=== PATIENT | male | born 1950 | race Caucasian/White ===

== ENCOUNTER → 2024-08-20 | Outpatient (CLI) | payer OTHER ==
[~2024-08-20] MED LIST: AMLO10 PO; HYDACE5; HYDPAM25 PO; IBUP800; PREDNISONE; ROSU10TA PO
[2024-08-20 08:27] LABS: BASOPHILS ABSOLUTE AUTO 0.04 K/mm3 (0.00-0.23); BASOPHILS PERCENT AUTO 0 % (0-2); EOSINOPHILS PERCENT AUTO 1 % (0-6); Hematocrit 35.4 % (37.0-53.0); Hemoglobin 11.9 g/dL (13.5-17.5); IMMATURE GRAN ABSOLUTE AUTO 0.08 K/mm3 (0.00-0.10); IMMATURE GRAN PERCENT AUTO 1 % (0-1); LYMPHOCYTES ABSOLUTE AUTO 1.41 K/mm3 (0.84-5.20); LYMPHOCYTES PERCENT AUTO 9 % (21-46); MONOCYTES ABSOLUTE AUTO 1.74 K/mm3 (0.16-1.47); MONOCYTES PERCENT AUTO 11 % (4-13); Mean Corpuscular HGB Conc 33.6 g/dL (31.5-36.5); Mean Corpuscular Volume 95 fL (80-100); Mean Platelet Volume 9.2 fL (9.1-12.4); NEUTROPHILS PERCENT AUTO 78 % (41-73); Platelet Count 354 K/mm3 (150-400); RDW Standard Deviation 47.6 fL (35.1-46.3); Red Blood Cell Count 3.72 M/mm3 (4.30-5.90); White Blood Cell Count 15.57 K/mm3 (4.00-11.30)
[2024-08-20 08:39] LABS: Albumin, Blood 2.3 g/dL (3.4-5.0); Albumin/Globulin Ratio 0.4 (0.8-1.8); Bilirubin, Total 1.1 mg/dL (0.1-1.0); Bun/Creatinine Ratio 13.8 (12.0-20.0); Calcium, Blood 8.7 mg/dL (8.5-10.1); Creatinine, Blood 1.09 mg/dL (0.60-1.20); Globulin, Blood 5.2 g/dL (2.2-4.0); Potassium, Blood 4.1 mmol/L (3.5-5.5); Total Protein, Blood 7.5 g/dL (6.4-8.2)
[2024-08-20 13:52] LABS: PSA, %Free 27.1 %
== END ==
LOC: LAB 08:23 → LAB SHORT 08:23
PROVIDERS: Physician Assistant
DX: R10.9 Unspecified abdominal pain (principal); N42.9 Disorder of prostate, unspecified
CPT/HCPCS: 80053; 83690; 84153; 84154; 85025

== ENCOUNTER 2024-08-28 08:24 | Emergency (ER) | payer OTHER ==
[~2024-08-28] VITALS: Ht 172.7 cm; Wt 104.3 kg
[2024-08-28] MEDS ORDERED: NS 1,000 ML IV SCH (09:05)
[2024-08-28 09:07] LABS: BASOPHILS ABSOLUTE AUTO 0.05 K/mm3 (0.00-0.23); BASOPHILS PERCENT AUTO 0 % (0-2); EOSINOPHILS ABSOLUTE AUTO 0.08 K/mm3 (0.00-0.68); EOSINOPHILS PERCENT AUTO 0 % (0-6); Hematocrit 32.8 % (37.0-53.0); Hemoglobin 11.4 g/dL (13.5-17.5); IMMATURE GRAN ABSOLUTE AUTO 0.21 K/mm3 (0.00-0.10); IMMATURE GRAN PERCENT AUTO 1 % (0-1); LYMPHOCYTES PERCENT AUTO 7 % (21-46); MONOCYTES ABSOLUTE AUTO 2.53 K/mm3 (0.16-1.47); MONOCYTES PERCENT AUTO 13 % (4-13); Mean Corpuscular HGB 32.6 pg (26.0-34.0); Mean Corpuscular HGB Conc 34.8 g/dL (31.5-36.5); Mean Corpuscular Volume 94 fL (80-100); Mean Platelet Volume 9.2 fL (9.1-12.4); NEUTROPHILS ABSOLUTE AUTO 15.64 K/mm3 (1.96-9.15); NEUTROPHILS PERCENT AUTO 79 % (41-73); Platelet Count 340 K/mm3 (150-400); RDW Coefficient Variation 14.6 % (11.7-14.2); RDW Standard Deviation 49.1 fL (35.1-46.3); White Blood Cell Count 19.91 K/mm3 (4.00-11.30)
[2024-08-28 09:28] LABS: Albumin, Blood 2.2 g/dL (3.4-5.0); Albumin/Globulin Ratio 0.4 (0.8-1.8); Bilirubin, Total 1.6 mg/dL (0.1-1.0); Bun/Creatinine Ratio 16.4 (12.0-20.0); Calcium, Blood 8.5 mg/dL (8.5-10.1); Creatinine, Blood 0.98 mg/dL (0.60-1.20); Globulin, Blood 5.4 g/dL (2.2-4.0); Potassium, Blood 4.2 mmol/L (3.5-5.5); Total Protein, Blood 7.6 g/dL (6.4-8.2)
[2024-08-28 09:35] LABS: Magnesium, Blood 1.9 mg/dL (1.6-2.4); Phosphorus, Blood 4.3 mg/dL (2.5-4.9)
[2024-08-28] MEDS ORDERED: ONDA4ODT MM (11:29)
[2024-08-28] MEDS ORDERED: DOC250 PO (11:29)
[2024-08-28] MEDS ORDERED: Percocet 5-3251 EACH PO (11:29)
[2024-08-28] MEDS ORDERED: ULTRA-LIGHT RO1 EACH MC (11:29)
[2024-08-28 12:00] VITALS: BP 125/70
== END 2024-08-28 12:21 | disposition home or self-care (01) ==
LOC: ER 08:24
PROVIDERS: Emergency Medicine
DX: E86.0 Dehydration (principal); E46 Unspecified protein-calorie malnutrition; I10 Essential (primary) hypertension; E78.5 Hyperlipidemia, unspecified; C15.9 Malignant neoplasm of esophagus, unspecified; C16.9 Malignant neoplasm of stomach, unspecified; Z68.33 Body mass index [BMI] 33.0-33.9, adult; Z88.0 Allergy status to penicillin; Z79.01 Long term (current) use of anticoagulants; Z79.899 Other long term (current) drug therapy
CPT/HCPCS: 80053; 83735; 84100; 85025; 86850; 86900; 86901; 93005; 93010; 96360; 99285-25; J7030

== ENCOUNTER 2024-08-29 06:43 | Day surgery (SDC) | payer OTHER ==
[~2024-08-29] VITALS: Ht 172.7 cm; Wt 102.8 kg
[~2024-08-29 06:43] MED LIST changes: +DOC250 PO; +ONDA4ODT MM; +Percocet 5-3251 EACH PO; +ULTRA-LIGHT RO1 EACH MC
[2024-08-29] MEDS ORDERED: Lactated Ringer's 1,000 ML IV ONE ×2 (07:30→08:03)
[2024-08-29] MEDS ORDERED: propofoL 50 ML IV ONE (07:30)
[2024-08-29 09:35] VITALS: BP 108/68
== END 2024-08-29 09:32 | disposition home or self-care (01) ==
LOC: ORSCSDS 06:43
PROVIDERS: Specialist
PROC: 0DBN8ZX Excision of Sigmoid Colon, Via Natural or Artificial Opening Endoscopic, Diagnostic (ICD-10-PCS; principal; 2024-08-29 08:00)
PROC: 0DB58ZX Excision of Esophagus, Via Natural or Artificial Opening Endoscopic, Diagnostic (ICD-10-PCS; principal; 2024-08-29 08:00)
PROC: 0DBL8ZZ Excision of Transverse Colon, Via Natural or Artificial Opening Endoscopic (ICD-10-PCS; principal; 2024-08-29 08:00)
DX: R93.3 Abnormal findings on diagnostic imaging of other parts of digestive tract (principal); R13.10 Dysphagia, unspecified; R11.0 Nausea; K21.9 Gastro-esophageal reflux disease without esophagitis; R63.4 Abnormal weight loss; C15.9 Malignant neoplasm of esophagus, unspecified; D12.3 Benign neoplasm of transverse colon; D12.5 Benign neoplasm of sigmoid colon; K57.30 Diverticulosis of large intestine without perforation or abscess without bleeding; K44.9 Diaphragmatic hernia without obstruction or gangrene; Z79.899 Other long term (current) drug therapy
CPT/HCPCS: 88305; 88360; 88374; J2704; J7120

== ENCOUNTER 2024-09-04 19:47 | Emergency (ER) | payer OTHER ==
[~2024-09-04] VITALS: Ht 182.9 cm; Wt 90.7 kg
[2024-09-04] MEDS ORDERED: Morphine Sulfate 4 MG/1 ML Injection IV ONE (23:10)
[2024-09-04] MEDS ORDERED: Ondansetron HCl 2 MG / ML 2ML Vial IV ONE (23:10)
[2024-09-04] MEDS ORDERED: NS 1,000 ML IV SCH (23:10)
[2024-09-04 23:33] LABS: BASOPHILS ABSOLUTE AUTO 0.05 K/mm3 (0.00-0.23); BASOPHILS PERCENT AUTO 0 % (0-2); EOSINOPHILS ABSOLUTE AUTO 0.04 K/mm3 (0.00-0.68); EOSINOPHILS PERCENT AUTO 0 % (0-6); Hematocrit 30.2 % (37.0-53.0); Hemoglobin 10.1 g/dL (13.5-17.5); IMMATURE GRAN ABSOLUTE AUTO 0.12 K/mm3 (0.00-0.10); IMMATURE GRAN PERCENT AUTO 1 % (0-1); LYMPHOCYTES ABSOLUTE AUTO 1.52 K/mm3 (0.84-5.20); LYMPHOCYTES PERCENT AUTO 9 % (21-46); MONOCYTES ABSOLUTE AUTO 2.09 K/mm3 (0.16-1.47); MONOCYTES PERCENT AUTO 12 % (4-13); Mean Corpuscular HGB 31.7 pg (26.0-34.0); Mean Corpuscular HGB Conc 33.4 g/dL (31.5-36.5); Mean Corpuscular Volume 95 fL (80-100); NEUTROPHILS ABSOLUTE AUTO 14.01 K/mm3 (1.96-9.15); NEUTROPHILS PERCENT AUTO 79 % (41-73); Platelet Count 333 K/mm3 (150-400); RDW Coefficient Variation 15.9 % (11.7-14.2); RDW Standard Deviation 54.8 fL (35.1-46.3); Red Blood Cell Count 3.19 M/mm3 (4.30-5.90); White Blood Cell Count 17.83 K/mm3 (4.00-11.30)
[2024-09-04 23:53] LABS: Albumin/Globulin Ratio 0.4 (0.8-1.8); Bilirubin, Total 1.6 mg/dL (0.1-1.0); Bun/Creatinine Ratio 27.9 (12.0-20.0); Calcium, Blood 8.4 mg/dL (8.5-10.1); Creatinine, Blood 0.86 mg/dL (0.60-1.20); Globulin, Blood 5.5 g/dL (2.2-4.0); Magnesium, Blood 2.2 mg/dL (1.6-2.4); Phosphorus, Blood 4.6 mg/dL (2.5-4.9); Potassium, Blood 4.3 mmol/L (3.5-5.5); Total Protein, Blood 7.5 g/dL (6.4-8.2)
[2024-09-05] MEDS ORDERED: Morphine Sulfate 4 MG/1 ML Injection IV ONE (03:30)
[2024-09-05] MEDS ORDERED: Ondansetron HCl 2 MG / ML 2ML Vial IV ONE (03:35)
[2024-09-05] MEDS ORDERED: METO10 PO (04:24)
[2024-09-05 05:00] VITALS: BP 141/67
== END 2024-09-05 05:06 | disposition home or self-care (01) ==
LOC: ER 19:47
PROVIDERS: Student in an Organized Health Care Education/Training Program
DX: C15.9 Malignant neoplasm of esophagus, unspecified (principal); C78.7 Secondary malignant neoplasm of liver and intrahepatic bile duct; K59.00 Constipation, unspecified; I10 Essential (primary) hypertension; E78.5 Hyperlipidemia, unspecified; Z88.1 Allergy status to other antibiotic agents; Z88.5 Allergy status to narcotic agent; Z79.01 Long term (current) use of anticoagulants
CPT/HCPCS: 74177; 80053; 83690; 83735; 84100; 85025; 96361; 96374-59; 96375; 96376; 99284-25; J2270; J2405; J7030; Q9967

== ENCOUNTER 2024-09-18 07:57 | Day surgery (SDC) | payer OTHER ==
[2024-09-18] VITALS (10 sets, daily range): BP systolic 98–150; BP diastolic 59–72
[~2024-09-18] VITALS: Ht 172.7 cm; Wt 99.0 kg
[~2024-09-18 07:57] MED LIST changes: +METO10 PO
[2024-09-18] MEDS ORDERED: Lactated Ringer's 1,000 ML IV SCH ×2 (08:00→08:30)
[2024-09-18] MEDS ORDERED: CeFAZolin Sodium 2,000 MG in NS 100 ML IV SCH (08:30)
--- NOTE | 2024-09-18 08:59 | NUR ---
PT TO SDS VIA WC. PT STATES THIS IS USED FOR LONGER DISTANCES. PT ABLE TO STAND ON SCALE FOR ACCURATE HEIGHT/WEIGHT. History, Chart, Medications and Allergies reviewed before start of procedure. Lungs clear T/O to Auscultation. Patient confirms NPO status and agrees with scheduled surgery. Pre-Op teaching done. Pt verbalizes understanding. Patient States Post-Procedure ride home has been arranged. PT BELONGINGS PLACED UNDERNEATH [facility] FOR SAFEKEEPING. PT GLASSES TAKEN TO PACU FOR SAFEKEEPING.
[2024-09-18] MEDS ORDERED: propofoL 60 ML IV ONE (09:00)
[2024-09-18] MEDS ORDERED: Lidocaine HCl 1% 30 ML SDV ONE (09:06)
--- NOTE | 2024-09-18 11:23 | NUR ---
Discharge instructions reviewed with patient. Patient verbalizes understanding. Copy given to patient to take home. Patient up to Ambulate independently. Gait steady. Discharged via wheelchair to private car for ride home. ALL BELONGINGS RETURNED TO PATIENT.
[2024-09-30] MEDS ORDERED: FENTANYL1 EA20 TOP (14:19)
[2024-09-30] MEDS ORDERED: ONDANSETRON ODT16 MG PO (14:19)
== END 2024-09-18 23:00 | disposition home or self-care (01) ==
LOC: ORD 07:57 → ORSCMMR 07:57 → ORD 09:00 → ORSCMMR 23:00
PROVIDERS: Surgery
PROC: 05HM33Z Insertion of Infusion Device into Right Internal Jugular Vein, Percutaneous Approach (ICD-10-PCS; principal; 2024-09-18 09:00)
PROC: B543ZZA Ultrasonography of Right Jugular Veins, Guidance (ICD-10-PCS; principal; 2024-09-18 09:00)
PROC: 0JH63WZ Insertion of Totally Implantable Vascular Access Device into Chest Subcutaneous Tissue and Fascia, Percutaneous Approach (ICD-10-PCS; principal; 2024-09-18 09:00)
DX: C15.5 Malignant neoplasm of lower third of esophagus (principal); I10 Essential (primary) hypertension; E78.5 Hyperlipidemia, unspecified; Z79.899 Other long term (current) drug therapy; Z87.891 Personal history of nicotine dependence; E66.9 Obesity, unspecified; Z68.33 Body mass index [BMI] 33.0-33.9, adult
CPT/HCPCS: 36415; 77001; 80053; 85025; C1788; J0690; J1642; J2704; J7120

== ENCOUNTER 2024-09-30 14:03 | Inpatient (IN) | payer OTHER ==
[~2024-09-30] VITALS: Ht 175.3 cm; Wt 91.9 kg
[~2024-09-30 14:03] MED LIST changes: -ROSU10TA PO; +ROSUVASTATIN CA10 MG PO
[2024-09-30] MEDS ORDERED: FENTANYL1 EA20 TD (14:19)
[2024-09-30] MEDS ORDERED: REGLAN1013 PO (14:19)
[2024-09-30] MEDS ORDERED: Ondansetron Odt8 MG SL (14:19)
[2024-09-30 14:41] LABS: BASOPHILS ABSOLUTE AUTO 0.01 K/mm3 (0.00-0.23); BASOPHILS PERCENT AUTO 0 % (0-2); EOSINOPHILS ABSOLUTE AUTO 0.19 K/mm3 (0.00-0.68); EOSINOPHILS PERCENT AUTO 6 % (0-6); Hematocrit 30.6 % (37.0-53.0); Hemoglobin 9.8 g/dL (13.5-17.5); IMMATURE GRAN ABSOLUTE AUTO 0.01 K/mm3 (0.00-0.10); IMMATURE GRAN PERCENT AUTO 0 % (0-1); LYMPHOCYTES ABSOLUTE AUTO 1.03 K/mm3 (0.84-5.20); LYMPHOCYTES PERCENT AUTO 30 % (21-46); MONOCYTES PERCENT AUTO 3 % (4-13); Mean Corpuscular HGB 32.3 pg (26.0-34.0); Mean Corpuscular Volume 101 fL (80-100); NEUTROPHILS PERCENT AUTO 61 % (41-73); Platelet Count 113 K/mm3 (150-400); RDW Standard Deviation 62.4 fL (35.1-46.3); Red Blood Cell Count 3.03 M/mm3 (4.30-5.90); White Blood Cell Count 3.44 K/mm3 (4.00-11.30)
[2024-09-30 14:57] LABS: Albumin, Blood 2.3 g/dL (3.4-5.0); Albumin/Globulin Ratio 0.5 (0.8-1.8); Bilirubin, Total 0.6 mg/dL (0.1-1.0); Bun/Creatinine Ratio 20.4 (12.0-20.0); Creatinine, Blood 0.79 mg/dL (0.60-1.20); Globulin, Blood 4.2 g/dL (2.2-4.0); Magnesium, Blood 1.7 mg/dL (1.6-2.4); Potassium, Blood 2.7 mmol/L (3.5-5.5); Total Protein, Blood 6.5 g/dL (6.4-8.2)
[2024-09-30] MEDS ORDERED: Potassium Chloride 20 MEQ TabCR PO ONE (15:05)
[2024-09-30] MEDS ORDERED: Potassium Chloride 40 MEQ in NS 250 ML IV ONE (15:05)
[2024-09-30] MEDS ORDERED: Potassium Chloride 20 MEQ/15 ML UDC PO ONE (15:10)
[2024-09-30] MEDS ORDERED: Ondansetron HCl 2 MG / ML 2ML Vial IV PRN (15:40)
[2024-09-30] MEDS ORDERED: Enoxaparin 40 MG/0.4 ML SYR SC SCH (16:00)
[2024-09-30] MEDS ORDERED: NS 1,000 ML IV SCH (16:00)
[2024-09-30] MEDS ORDERED: Albumin (Human) 25gm/100ml 100 ML IV ONE (19:55)
[2024-09-30] MEDS ORDERED: LORazepam 2 MG/ML 1ML Injection IV ONE (21:10)
[2024-09-30 21:38] VITALS: BP 150/105
[2024-10-01] VITALS (8 sets, daily range): BP systolic 142–182; BP diastolic 69–83
[2024-10-01 01:04] LABS: Source, Urine Clean Catch
[2024-10-01 01:08] LABS: Bilirubin, Urine Neg (Neg); Blood, Urine Neg (Neg); Glucose Qualitative, Urine Neg (Neg); Ketones, Urine Neg (Neg); Leukocyte Esterase, Urine Neg (Neg); Nitrite, Urine Neg (Neg); Protein, Urine 3+ (Neg); Specific Gravity, Urine 1.015 (1.003-1.022); Urobilinogen, Urine 1+ (Normal); pH, Urine 6.5 (5.0-8.0)
[2024-10-01 01:24] LABS: Appearance, Urine Clear (Clear); Color, Urine Yellow (P-Yellow)
[2024-10-01 01:25] LABS: Amorphous Light (0-Heavy); Bacteria Rare /hpf; Mucus Light (0-Heavy); Red Blood Cells, Urine Not Seen /hpf (0-2); Squamous Epithelial Cells Few /hpf (Few); White Blood Cells, Urine 0-2 /hpf (0-5)
--- NOTE | 2024-10-01 04:54 | NUR ---
PT A&O X4, VS SLIGHTLY ELEVATED, PT DENIES PAIN, NO NAUSEA, AND NO LONGER DIZZY. PT WITH ADEQUATE UOP, AND 1L OF IVF INFUSED THIS SHIFT. PT ADMITTED FROM ED WITH MULTIPLE SYNCOPAL EPISODES AT HOME. PT STATES THAT HE DOES HAVE DIFFICULTY WITH SWALLOWING FOOD, AND DOES TAKE SOFT FOODS AT HOME, WILL CHANGE DIET TO REFLECT THAT. TELE NSR IN 60'S, AND WAS INDEPENDENT AT FOR URINAL USE BY THIS AM. AWAITING CXR.
[2024-10-01 05:50] LABS: BASOPHILS ABSOLUTE AUTO 0.01 K/mm3 (0.00-0.23); BASOPHILS PERCENT AUTO 0 % (0-2); EOSINOPHILS ABSOLUTE AUTO 0.22 K/mm3 (0.00-0.68); EOSINOPHILS PERCENT AUTO 7 % (0-6); Hematocrit 28.5 % (37.0-53.0); Hemoglobin 9.2 g/dL (13.5-17.5); Mean Corpuscular HGB 32.4 pg (26.0-34.0); Mean Corpuscular HGB Conc 32.3 g/dL (31.5-36.5); Mean Corpuscular Volume 100 fL (80-100); Mean Platelet Volume 10.4 fL (9.1-12.4); Platelet Count 87 K/mm3 (150-400); RDW Coefficient Variation 16.8 % (11.7-14.2); RDW Standard Deviation 61.8 fL (35.1-46.3); Red Blood Cell Count 2.84 M/mm3 (4.30-5.90); White Blood Cell Count 3.08 K/mm3 (4.00-11.30)
[2024-10-01 05:54] LABS: IMMATURE GRAN ABSOLUTE AUTO 0.01 K/mm3 (0.00-0.10); IMMATURE GRAN PERCENT AUTO 0 % (0-1); LYMPHOCYTES ABSOLUTE AUTO 1.19 K/mm3 (0.84-5.20); LYMPHOCYTES PERCENT AUTO 39 % (21-46); MONOCYTES ABSOLUTE AUTO 0.12 K/mm3 (0.16-1.47); MONOCYTES PERCENT AUTO 4 % (4-13); NEUTROPHILS ABSOLUTE AUTO 1.53 K/mm3 (1.96-9.15); NEUTROPHILS PERCENT AUTO 50 % (41-73)
[2024-10-01 06:19] LABS: Albumin, Blood 2.5 g/dL (3.4-5.0); Albumin/Globulin Ratio 0.6 (0.8-1.8); Bilirubin, Total 0.6 mg/dL (0.1-1.0); Bun/Creatinine Ratio 18.6 (12.0-20.0); Calcium, Blood 7.7 mg/dL (8.5-10.1); Creatinine, Blood 0.7 mg/dL (0.60-1.20); Total Protein, Blood 6.5 g/dL (6.4-8.2)
[2024-10-01] MEDS ORDERED: NS 1,000 ML IV SCH (13:30)
[2024-10-01] MEDS ORDERED: Potassium Chl 20MEQ/Water100ML 100 ML IV STA (13:35)
[2024-10-01] MEDS ORDERED: HydrALAZINE HCl 20 MG / ML 1ML Vial IV PRN (17:35)
--- NOTE | 2024-10-01 18:42 | NUR ---
PT A&OX4, VSS WITH HTN. PT FAMILY STATES PT NORMALLY TAKES AMLODIPINE FOR HTN, BUT HAS NOT TAKEN IT FOR THE PAST WEEK D/T HYPOTENSION R/T DEHYDRATION FROM POOR ORAL INTAKE. SB 50S TO SR IN 70S ON TELE. C/O NAUSEA THIS MORNING ZOFRAN GIVEN AND EFFECTIVE. POOR ORAL INTAKE, PT ON CONTINUOUS NS AT 75ML/HR, 20 mEq OF IV POTASSIUM GIVEN FOR K+ OF 3.0 WITH AM LABS. GI CONSULT TODAY, PEG TO BE PLACED TOMORROW AFTERNOON FOR NUTRITION. PT HAS PRN HYDRALOZINE FOR SBP>180. 1 PA TO BATHROOM FOR 2 SM LOOSE BM THIS SHIFT, INDEPENDENT WITH URINAL AT BEDSIDE. PT PLEASANT AND COOPERATIVE WITH CARE. DAUGHTER STATED THAT HE LIKES VANILLA ENSURE. DIET TO CHANGE TO WATER/ICECHIPS AT 2100 TONIGHT AND NPO AT NOON TOMORROW FOR PEG PLACEMENT.
[2024-10-02] VITALS (9 sets, daily range): BP systolic 156–190; BP diastolic 67–82
--- NOTE | 2024-10-02 04:34 | NUR ---
NPO @ NOOON FOR FEEDING TUBE PLACEMENT. NO ACUTE NEEDS OVERNIGHT. PALLATIVE CARE CONSULT IN CHART.
[2024-10-02 05:32] LABS: Hematocrit 28.8 % (37.0-53.0); Hemoglobin 9.5 g/dL (13.5-17.5); Mean Corpuscular HGB 32.5 pg (26.0-34.0); Mean Corpuscular Volume 99 fL (80-100); Platelet Count 76 K/mm3 (150-400); RDW Coefficient Variation 16.6 % (11.7-14.2); RDW Standard Deviation 59.7 fL (35.1-46.3); Red Blood Cell Count 2.92 M/mm3 (4.30-5.90); White Blood Cell Count 4.48 K/mm3 (4.00-11.30)
[2024-10-02 05:52] LABS: Albumin, Blood 2.5 g/dL (3.4-5.0); Anion Gap 8 mmol/L (3-11); Blood Urea Nitrogen 7 mg/dL (8-24); Bun/Creatinine Ratio 13.5 (12.0-20.0); CO2, Blood 30 mmol/L (21-32); Calcium, Blood 7.9 mg/dL (8.5-10.1); Chloride, Blood 102 mmol/L (98-108); Creatinine, Blood 0.52 mg/dL (0.60-1.20); Glomerular Filtration Rate 104 (60-); Glucose, Blood 108 mg/dL (70-99); Magnesium, Blood 1.2 mg/dL (1.6-2.4); Phosphorus, Blood 1.9 mg/dL (2.5-4.9); Potassium, Blood 2.8 mmol/L (3.5-5.5); Sodium, Blood 137 mmol/L (136-145)
[2024-10-02] MEDS ORDERED: FentaNYL 12 MCG/HR Patch TOP SCH (09:00)
[2024-10-02] MEDS ORDERED: Potassium Phosphate Dibasic 30 MM in Dextrose 5% 500 ML IV STA (09:07)
[2024-10-02] MEDS ORDERED: Ketorolac Tromethamine 15mg Vial IV PRN (11:25)
[2024-10-02] MEDS ORDERED: Magnesium Sulf 2 GM/Water 50ML 50 ML IV ONE (11:25)
--- NOTE | 2024-10-02 12:34 | NUR ---
NOTE: SPOKE WITH PHARMACIST, RADHA ORTIZ, AND SHE SAID OKAY TO RUN POTASSIUM AND MG CONCURRENTLY.
[2024-10-02] MEDS ORDERED: NS 250 ML IV PRN (13:55)
[2024-10-02] MEDS ORDERED: Lactated Ringer's 1,000 ML IV SCH (14:10)
[2024-10-02] MEDS ORDERED: Potassium Chloride 40 MEQ in NS 250 ML IV ONE (14:30)
--- NOTE | 2024-10-02 14:35 | NUR ---
FLUSHED R HAND IV SITE WITH 10NS TO START PLT INFUSION PER ORDERS.
[2024-10-02] MEDS ORDERED: propofoL 60 ML IV ONE (14:56)
[2024-10-02] MEDS ORDERED: propofoL 20 ML IV ONE (15:09)
[2024-10-02] MEDS ORDERED: CeFAZolin Sodium 2,000 MG in NS 100 ML IV SCH (15:10)
--- NOTE | 2024-10-02 15:21 | NUR ---
10/02/24 [address] HODGES, SEE ANESTHESIA RECORDS.
--- NOTE | 2024-10-02 16:43 | NUR ---
NOTE: PT RETURNED FROM PEG TUBE PLACEMENT AT 1620, FAMILY AT THE BS. PT APPEARS TO HAVE TOLERATED IT WELL. NO PAIN AT THIS TIME. DR. RODRIGUEZ AT THE BS AND SPOKE WITH THE FAMILY. FEEDINGS SET TO BEGIN ON 10/03. PT AWARE.
--- NOTE | 2024-10-02 18:10 | NUR ---
SHIFT SUMMARY PT AOX4, 1 ASSIST WITH FWW TO THE BR. HE CALLS AND MAKES HIS NEEDS KNOWN. PEG PLACED TODAY, HE REMAINS NPO. FAMILY UPDATED AND AT THE BS THROUGHOUT THE SHIFT. NO C/O PAIN SINCE THE SURGERY. NO EVENTS PER TELE. REPOSITIONS SELF IN BED. CALL LIGHT WITHIN REACH, BED LOCKED AND IN THE LOWEST POSITION. WILL REPORT TO ONCOMING NURSE.
[2024-10-02] MEDS ORDERED: HydrALAZINE HCl 20 MG / ML 1ML Vial IV ONE (18:20)
--- NOTE | 2024-10-02 18:21 | NUR ---
NOTE: PT'S BLOOD PRESSURE NOTED IN THE CHART. DR. RYAN NOTIFIED AND MEDICATION ORDERED PER THE EMAR.
[2024-10-03 02:42] VITALS: BP 173/79
[2024-10-03 05:50] LABS: Albumin, Blood 2.3 g/dL (3.4-5.0); Anion Gap 11 mmol/L (3-11); Blood Urea Nitrogen 5 mg/dL (8-24); Bun/Creatinine Ratio 10.4 (12.0-20.0); CO2, Blood 24 mmol/L (21-32); Chloride, Blood 104 mmol/L (98-108); Creatinine, Blood 0.48 mg/dL (0.60-1.20); Glomerular Filtration Rate 107 (60-); Glucose, Blood 82 mg/dL (70-99); Magnesium, Blood 1.2 mg/dL (1.6-2.4); Phosphorus, Blood 2.1 mg/dL (2.5-4.9); Potassium, Blood 2.9 mmol/L (3.5-5.5); Sodium, Blood 136 mmol/L (136-145)
[2024-10-03 07:40] VITALS: BP 179/76
[2024-10-03] MEDS ORDERED: Magnesium Sulf 2 GM/Water 50ML 50 ML IV STA (09:57)
[2024-10-03] MEDS ORDERED: Potassium Phosphate Dibasic 30 MM in Dextrose 5% 500 ML IV STA ×2 (09:58→09:59)
[2024-10-03] MEDS ORDERED: Potassium Chloride 40 MEQ in NS 250 ML IV ONE ×2 (10:00→15:00)
[2024-10-03] MEDS ORDERED: Docusate Sodium Liquid 100 MG UDC PT PRN (14:35)
[2024-10-03] MEDS ORDERED: Magnesium Hydroxide Conc 10 ML UDC PT PRN (14:35)
[2024-10-03] MEDS ORDERED: Bisacodyl 10 MG Supp PR PRN (14:35)
[2024-10-03] MEDS ORDERED: Thiamine HCl 100 MG Tab PT SCH (14:45)
[2024-10-03] MEDS ORDERED: Potassium Chloride 20 MEQ/15 ML UDC PT STA (16:15)
[2024-10-03] MEDS ORDERED: Ondansetron HCl 2 MG / ML 2ML Vial IV PRN (16:25)
[2024-10-03] MEDS ORDERED: Metoclopramide HCl 5MG / ML 2ML Vial IV PRN (16:30)
[2024-10-03] MEDS ORDERED: FentaNYL Citrate 50 MCG/ML 2 ML Injection IV PRN (16:30)
[2024-10-03 16:50] VITALS: BP 182/78
[2024-10-03] MEDS ORDERED: AmLODIPine Besylate 5 MG Tab PT SCH (17:00)
--- NOTE | 2024-10-03 17:12 | NUR ---
SHIFT SUMMARY PT AOX4, 1 ASSIST FWW TO THE BR OR USING THE URINAL. TUBE FEEDINGS STARTED THIS EVENING AND PT TOLERATING WELL. MEDICATED FOR PAIN PER THE EMAR. NO EVENTS PER TELE. MEDICATED FOR PAIN PER THE EMAR. FAMILY EDUCATED ON PEG TUBE USE. REPOSITIONS SELF IN BED. COOPERATIVE WITH CARE. CALL LIGHT WITHIN REACH, BED LOCKED AND IN THE LOWEST POSITION. WILL REPORT TO ONCOMING NURSE.
[2024-10-03] MEDS ORDERED: Ketorolac Tromethamine 15mg Vial IV SCH (18:00)
[2024-10-03 18:23] VITALS: BP 176/75
[2024-10-03] MEDS ORDERED: HydrALAZINE HCl 20 MG / ML 1ML Vial IV ONE (18:30)
[2024-10-03 19:50] VITALS: BP 142/68
[2024-10-04 00:18] VITALS: BP 132/75
--- NOTE | 2024-10-04 04:48 | NUR ---
PT A&O X4. VS WITH HYPERTENTION AND X1 DOSE OF HYDRALAZINE GIVEN IVP WITH GOOD RESULTS. DENIES PAIN. UOP WNL, USING URINAL AT BEDSIDE. PT UP INDEPENDENTLY. TF RUNNING AT 20ML/ HR, AND H2O RUNNING AT 200ML EVERY 2HRS. PT TELE NSR WITH BBB. USES CALL SYSTEM APPROPRIATELY, AWAITING TEACHING FOR HOME TUBE FEEDS, AND FOR LABS TO LEVEL OUT.
[2024-10-04 06:18] LABS: Bun/Creatinine Ratio 10.1 (12.0-20.0); Calcium, Blood 7.8 mg/dL (8.5-10.1); Creatinine, Blood 0.5 mg/dL (0.60-1.20); Magnesium, Blood 1.4 mg/dL (1.6-2.4); Phosphorus, Blood 2.1 mg/dL (2.5-4.9); Potassium, Blood 3.2 mmol/L (3.5-5.5)
[2024-10-04 08:01] VITALS: BP 146/69
[2024-10-04] MEDS ORDERED: Multivitamins-Minerals Liquid 15 ML Oral Syringe PT SCH (09:00)
[2024-10-04] MEDS ORDERED: Rosuvastatin Calcium 10 MG Tab PT SCH (09:00)
[2024-10-04] MEDS ORDERED: Potassium Chloride 20 MEQ/15 ML UDC PT STA (09:12)
[2024-10-04] MEDS ORDERED: Potassium Phosphate Dibasic 30 MM in Dextrose 5% 500 ML IV STA (09:19)
[2024-10-04] MEDS ORDERED: Magnesium Sulf 2 GM/Water 50ML 50 ML IV STA (09:19)
[2024-10-04 12:00] LABS: Hemoglobin 9.6 g/dL (13.5-17.5); Mean Corpuscular HGB 32.4 pg (26.0-34.0); Mean Corpuscular HGB Conc 33.1 g/dL (31.5-36.5); Mean Corpuscular Volume 98 fL (80-100); Mean Platelet Volume 10.4 fL (9.1-12.4); Platelet Count 80 K/mm3 (150-400); RDW Coefficient Variation 16.8 % (11.7-14.2); RDW Standard Deviation 60.9 fL (35.1-46.3); Red Blood Cell Count 2.96 M/mm3 (4.30-5.90); White Blood Cell Count 5.33 K/mm3 (4.00-11.30)
[2024-10-04 13:02] LABS: BASOPHILS PERCENT MAN 0 % (0-2); EOSINOPHILS ABSOLUTE MAN 0.15 K/mm3 (0.00-0.68); EOSINOPHILS PERCENT MAN 3 % (0-6); LYMPHOCYTES ABSOLUTE MAN 1.49 K/mm3 (0.84-5.20); LYMPHOCYTES PERCENT MAN 28 % (21-46); MONOCYTES PERCENT MAN 2 % (4-13); NEUTROPHILS ABSOLUTE MAN 3.57 K/mm3 (1.96-9.15); SEG NEUTROPHILS PERCENT MAN 67 % (41-73); TOTAL CELLS COUNTED 100
--- NOTE | 2024-10-04 14:38 | NUR ---
Javascript Application Developer had questions regarding placement of PEG tube, as pt's cancer treatment "only palliative." Spoke with patient as well as his son Prince, and they are indeed aware of this. Relayed to roofer apprentice. Pt's discharge planning is underway, no questions or concerns from pt or family at this time.
[2024-10-04 15:43] VITALS: BP 161/73
--- NOTE | 2024-10-04 18:03 | NUR ---
APPROX 1130 PT DESCRIBED FEELING FULL AND SMALL AMOUNT OF DISCOMFORT IN ABD. FEEDS PAUSED FOR 2 HOURS. PT REPORTED COMPLETE RELIEF OF THE DISCOMFORT RELATED TO FEELING FULL AND ONLY MINIMAL PAIN AT PEG TUBE SITE. AREA CLEANSED AND REDRESSED. PT TUBE FEED RESTARTED AT NEW ORDERED RATE/FLUSH. PT HAS TOLORATED WELL WITH NO COMPLAINTS. FOURTH HAND NOTIFIED THIS RN THAT DIL DOES NOT FEEL LIKE SHE UNDERSTANDS BOLUS FEED PLAN. FOURTH HAND REQUESTED THAT BEDSIDE NURSE PLEASE CALL DIL TO COME IN BEFORE BEGINNING BOLUS FEED TRIAL SO THAT DIL CAN LEARN AT BEDSIDE. PT NEEDS POWERGLIDE DUE TO CONTINUED NEED FOR SUPPLEMENT ELECTROLITES. GLASS TUBE BENDER AWARE
[2024-10-04] MEDS ORDERED: Potassium Chloride 20 MEQ/15 ML UDC PO ONE (19:00)
--- NOTE | 2024-10-04 19:35 | NUR ---
PT HAS NO IV ACCESS AT THIS TIME, PT WAS INFORMED THAT SOMEONE WOULD BE COMING TO PLACE A NEW LINE. PT STATES HE IS IN NO PAIN AT THIS TIME. CALL LT IN REACH.
[2024-10-04 19:39] VITALS: BP 154/89
--- NOTE | 2024-10-04 20:10 | NUR ---
PT REPORTS HE IS NOT IN PAIN AND DID NOT NEED ANYTHING AT THIS TIME. EXPLAINED TO PT THAT SOMEONE WOULD BE COMING IN TO SEE ABOUT PUTTING A NEW IV. PT AGREES WITH PLAN AND DENIES PAIN AT THIS TIME. CALL LT IN REACH.
--- NOTE | 2024-10-04 22:13 | NUR ---
NEW IV PLACED USING U/S BY NURSING CT MRI TECHNOLOGIST, PT TOLERATED WELL. TELE BATTERIES REPLACED AT THIS TIME. PT CONTINUES TO DENY PAIN AND ANY NEED OF PAIN MEDICATION. NEXT PAIN MED DUE AT MN. NO OTHER NEEDS. CALL LT IN REACH.
--- NOTE | 2024-10-05 00:01 | NUR ---
PT STATES NO PAIN, MEDICATED SCHEDULED TORADOL 15 MG IV. PT UP TO THE BR, AMBULATED WELL. NO OTHER NEEDS. CALL LT IN REACH.
[2024-10-05 00:07] VITALS: BP 144/68
--- NOTE | 2024-10-05 01:50 | NUR ---
PT RESTING QUIETLY. TOLERATING TUBE FEEDING AT 35 MLS/HR GOAL RATE. CALL LT N REACH.
--- NOTE | 2024-10-05 04:01 | NUR ---
PT RESTING QUIETLY. CALL LT IN REACH.
--- NOTE | 2024-10-05 04:03 | NUR ---
SHIFT SUMMARY: PT HAS RESTED WELL T/O SHIFT. HAS DENIED PAIN T/O SHIFT. ON RA. SINUS AT 70 ON TELE. SBA TO BATHROOM D/T PT IN ON CONTINUOUS TUBE FEEDS; AT GOAL RATE OF 35 MLS/HR AND TOLERATING. PT TOLERATES SOME ORAL INTAKE AT PT'S DISCRETION. A/O X 4, PLEASANT AND COOPERATIVE WITH CARE. NO ACUTE CHANGES. WILL CONTINUE TO PROVIDE CARE UNTIL SHIFT REPORT TO ONCOMING NURSE. CALL LT IN REACH.
[2024-10-05 04:29] VITALS: BP 136/75
[2024-10-05 06:10] LABS: Albumin, Blood 2.3 g/dL (3.4-5.0); Anion Gap 9 mmol/L (3-11); Blood Urea Nitrogen 6 mg/dL (8-24); CO2, Blood 25 mmol/L (21-32); Calcium, Blood 7.6 mg/dL (8.5-10.1); Chloride, Blood 104 mmol/L (98-108); Glomerular Filtration Rate 106 (60-); Glucose, Blood 133 mg/dL (70-99); Magnesium, Blood 1.6 mg/dL (1.6-2.4); Phosphorus, Blood 2.3 mg/dL (2.5-4.9); Potassium, Blood 3.5 mmol/L (3.5-5.5); Sodium, Blood 134 mmol/L (136-145)
--- NOTE | 2024-10-05 06:16 | NUR ---
MEDICATED PT WITH SCHEDULED TORADOL. PT SITTING ON SIDE OF BED DOING MOUTHCARE. NO OTHER NEEDS. CALL LT IN REACH.
[2024-10-05 07:02] VITALS: BP 135/67
[2024-10-05] MEDS ORDERED: Potassium Chloride 20 MEQ/15 ML UDC PO SCH (09:00)
[2024-10-05] MEDS ORDERED: Potassium Phosphate Dibasic 20 MM in Dextrose 5% 500 ML IV STA (09:02)
[2024-10-05] MEDS ORDERED: Mag Sulfate 1 GM/D5% 100ML 100 ML IV STA (09:02)
--- NOTE | 2024-10-05 12:40 | NUR ---
CONTINUOUS TUBE FEED STOPPED AT 1040 FOR ONE HOUR; AFTER ONE HOUR PATIENT ASSESSED; FELT FINE; DENIES ABD BLOATING, PAIN, OR FULLNESS. 120 ML OF BOLUS FEED OF JEVITY 1.5 INSTILLED AND 30 ML OF FLUSH BEFORE AND AFTER. PATIENT TOLERATED WELL. THIS WAS REPORTED TO VALERY TAMAYO DIETITIAN.
[2024-10-05 16:14] VITALS: BP 164/78
--- NOTE | 2024-10-05 18:53 | NUR ---
SHIFT SUMMARY: PATIENT TRANSISTIONED FROM CONTINUOUS TUBE FEED TO BOLUS FEEDS(SEE NEW TUBE FEED ORDER); X2 SO FAR AN TOLERATING WELL. PATIENT PO INTAKE IS IMPROVED WELL AND TOLERATING. PATIENT IS VOIDING AND HAVING BOWEL MOVEMENTS; DENIES PAIN. PATIENT IN BED, CALL LIGHT WITHIN REACH, NO SIGNS OR SYMPTOMS OF DISTRESS, PLAN OF CARE ONGOING.
[2024-10-05 20:12] VITALS: BP 151/77
[2024-10-06 00:13] VITALS: BP 142/72
--- NOTE | 2024-10-06 03:15 | NUR ---
SHIFT SUMMARY NO ACUTE EVENTS DURING THIS SHIFT. PT IS A/O X4, PLEASANT AND COOPERATIVE WITH CARE. CONTINUING PT EDUCATION R/T TUBE FEEDINGS. HS FEEDING 335MLS WITH H20 FLUSHES. GOAL IS 335MLS. PT TOLERATED WELL. HOB>40 DEGREES. PT DENIES PAIN AND DISCOMFORT. MODERATE ABDOMINAL DISTENTION, BOWEL SOUNDS ACTIVE PER AUSCULTATION. PT REPORTS HAD AN ICE CREAM AT HS, FELT NAUSEOUS AFTER. TELE: SR @90 WITH BBB. PT DENIES CP/PRESSURE. BED AT THE LOWEST POSITION, CALL LIGHT W/I REACH. PT IS ABLE TO MAKE HIS NEEDS KNOWN.
[2024-10-06 05:10] VITALS: BP 146/72
[2024-10-06 05:54] LABS: Bun/Creatinine Ratio 13.4 (12.0-20.0); Calcium, Blood 8.2 mg/dL (8.5-10.1); Creatinine, Blood 0.52 mg/dL (0.60-1.20); Magnesium, Blood 1.6 mg/dL (1.6-2.4); Phosphorus, Blood 3.1 mg/dL (2.5-4.9); Potassium, Blood 3.7 mmol/L (3.5-5.5)
[2024-10-06 07:13] VITALS: BP 149/69
[2024-10-06] MEDS ORDERED: Mag Sulfate 1 GM/D5% 100ML 100 ML IV STA (07:29)
[2024-10-06] MEDS ORDERED: Protein Supplement 30 ML UD PT SCH (09:00)
--- NOTE | 2024-10-06 14:09 | NUR ---
PATIENT IS REPORTING FULLNESS AT THIS TIME AND WOULD LIKE HOLD OFF ON ADDITIONAL FEED AT THIS TIME.
[2024-10-06 15:07] VITALS: BP 135/65
[2024-10-06] MEDS ORDERED: MULTIPLE VITAM1 EACH PO (15:58)
[2024-10-06] MEDS ORDERED: POTA20LUD PO (15:59)
[2024-10-06] MEDS ORDERED: Promod946 ML PO (16:01)
[2024-10-06] MEDS ORDERED: B-1100 M1 PO (16:02)
--- NOTE | 2024-10-06 16:57 | NUR ---
DISCHARGE NOTE: PATIENT'S IV AND TELE REMOVED. PATIENT AND FAMILY EDUATED ON PEG TUBE AND TUBE FEEDS. PATIENT GOT DRESSED AND COLLECTED BELONGINGS. PATIENT PROVIDED WITH SUPPLEMENTAL FEED TO LAST UNTIL 10/09/24. PATIENT AND FAMILY ACKNOWLEGDED UNDERSTANDING ON EDUCATION AND DISCHARGE. PATIENT TRANSPORTED OFF UNIT BY SON IN PERSONAL WHEELCHAIR. NO SIGNS OR SYMPTOMS OF DISTRESS WITH DISCHARGE.
== END 2024-10-06 16:55 | disposition home health service (06) | DRG 640 ==
LOC: ER 14:03 → MEDS 14:04
PROVIDERS: Internal Medicine; Internal Medicine Gastroenterology; Student in an Organized Health Care Education/Training Program; ADMIT Internal Medicine
PROC: 3E0G76Z Introduction of Nutritional Substance into Upper GI, Via Natural or Artificial Opening (ICD-10-PCS; 2024-10-02)
PROC: 30233R1 Transfusion of Nonautologous Platelets into Peripheral Vein, Percutaneous Approach (ICD-10-PCS; 2024-10-02)
PROC: 0DH63UZ Insertion of Feeding Device into Stomach, Percutaneous Approach (ICD-10-PCS; principal; 2024-10-02 15:00)
DX: E86.0 Dehydration (principal); D61.810 Antineoplastic chemotherapy induced pancytopenia; E44.0 Moderate protein-calorie malnutrition; C15.5 Malignant neoplasm of lower third of esophagus; I10 Essential (primary) hypertension; E78.5 Hyperlipidemia, unspecified; E87.6 Hypokalemia; Z66 Do not resuscitate; R13.12 Dysphagia, oropharyngeal phase; I95.9 Hypotension, unspecified; E83.39 Other disorders of phosphorus metabolism; D63.8 Anemia in other chronic diseases classified elsewhere; E83.42 Hypomagnesemia; Z88.0 Allergy status to penicillin; Z88.5 Allergy status to narcotic agent; Z79.899 Other long term (current) drug therapy; Z87.442 Personal history of urinary calculi; Z98.890 Other specified postprocedural states; Z87.19 Personal history of other diseases of the digestive system; Z87.891 Personal history of nicotine dependence
CPT/HCPCS: 36415; 36430; 71046; 80048; 80053; 80069; 81001; 83735; 83880; 84100; 84132; 85025; 85027; 86850; 86900; 86901; 93005; 93010; 96365; 96366; 96367; 96375; 96376; 97110-CQ; 97116; 97161; 97165; 97530; 97530-CQ; 97535; 99285-25; A9270; C1769; G0378; J0360; J1650; J1885; J2405; J2704; J3475; J3480; J7030; J7050; J7060; J7120; P9035; P9047

== ENCOUNTER 2025-03-22 08:06 | Day surgery (SDC) | payer OTHER ==
[~2025-03-22] VITALS: Ht 175.3 cm; Wt 89.8 kg
[~2025-03-22 08:06] MED LIST changes: +B-1100 M1 PO; +FENTANYL1 EA20 TD; +MULTIPLE VITAM1 EACH PO; +Ondansetron Odt8 MG SL; +POTA20LUD PO; +Promod946 ML PO; +REGLAN1013 PO
[2025-03-22] MEDS ORDERED: Benzocaine Oral Spray 0.5ML UD ONE (09:48)
[2025-03-22] MEDS ORDERED: CeFAZolin Sodium 2,000 MG VIAL ONE (10:10)
[2025-03-22 10:39] VITALS: BP 125/72
--- NOTE | 2025-03-22 10:40 | NUR ---
03/22/25 1040 Vashti Parish PT CAME TODAY WITH RIGHT HEARING AID IN, NO LEFT ONE. PT WENT HOME WITH RIGHT HEARING AID IN ALONG WITH TEETH AND GLASSES.
== END 2025-03-22 10:40 | disposition home or self-care (01) ==
LOC: ORSCSDS 08:06
PROVIDERS: Internal Medicine Gastroenterology
PROC: 0DH63UZ Insertion of Feeding Device into Stomach, Percutaneous Approach (ICD-10-PCS; principal; 2025-03-22 09:45)
PROC: 0DP68UZ Removal of Feeding Device from Stomach, Via Natural or Artificial Opening Endoscopic (ICD-10-PCS; principal; 2025-03-22 09:45)
DX: Z43.1 Encounter for attention to gastrostomy (principal); Z85.01 Personal history of malignant neoplasm of esophagus; Z79.899 Other long term (current) drug therapy; I10 Essential (primary) hypertension; E78.5 Hyperlipidemia, unspecified; N18.9 Chronic kidney disease, unspecified; Z87.891 Personal history of nicotine dependence
CPT/HCPCS: A9270; C1769; J0690; J2704; J7120